=== PATIENT | male | born 1955 | race Caucasian/White ===

== ENCOUNTER 2018-12-24 21:41 | Observation (INO) ==
[2018-12-24] MEDS ORDERED: methylPREDNISolone 125 MG/2 ML VIAL IVP ONE (21:54)
--- NOTE | 2018-12-24 22:20 | Emergency Department Note ---
Disposition Clinical Impression: Angioedema Qualifiers: Encounter type: initial encounter Qualified Code(s): T78.3XXA - Angioneurotic edema, initial encounter Disposition: Still a Patient Condition: Fair Time of Disposition: 23:51 General Adult HPI - General Chief complaint: ED General Medical Stated complaint: Facial Angioedema Time Seen by Provider: 12/24/18 21:44 Source: patient Mode of arrival: ambulatory Limitations: no limitations Nursing Notes Reviewed: Yes Vital Signs Reviewed: Yes - History of Present Illness HPI Narrative: 63-year-old male presents to the emergency department complaining of facial swelling. He noticed approximately 30 minutes prior to arrival he noticed the right side of his lip started swelling. Patient does take lisinopril never this long before has not eaten anything out of the ordinary. He has not had noticed any rashes shortness of breath trouble swallowing or lump in his throat. Says been on lisinopril for approximately 2 years. There is no hereditary factor of this as he does not know anyone also has this problem. He has not noticed a fast heart rate. He does not believe he is allergic to anything that he has been in contact with recently. Patient otherwise has no other complaints. Pain Scale: 3 - Related Data Home Medications Medication Instructions Recorded Confirmed Aspirin 81 mg PO DAILY 07/24/16 12/25/18 Lisinopril [Zestril] 10 mg PO DAILY 07/24/16 12/25/18 Metformin HCl [Glucophage] 1,000 mg PO DAILY 07/24/16 12/25/18 Tamsulosin HCl [Flomax] 0.4 mg PO DAILY 12/25/18 12/25/18 Allergies Allergy/AdvReac Type Severity Reaction Status Date / Time lisinopril Allergy Swelling Verified 12/25/18 06:05 of Lip/Tongue/Throat [place] Allergy Anaphylaxis Verified 12/24/18 21:52 All systems ED: reviewed and negative except as stated. Review of Systems: As Per HPI Past Medical History - Past Medical History Attestation: Yes The following information was validated with the patient. Source: patient Medical history: Reports: diabetes, hypertension, other Psychiatric history: Reports: no psych history - Social History Smoking Status: Former smoker Smokeless Tobacco Status: No Alcohol use: Reports: none Drug use: Reports: none Physical Exam - General Limitations: no limitations General appearance: alert - Head Head exam: atraumatic, normocephalic, normal inspection - Eye Eye exam: Present: normal appearance, PERRL, EOMI - ENT ENT exam: normal exam, normal oropharynx, mucous membranes moist, other (Right cheek/right lower lip swollen there is no airway compromise no other swelling in the mouth. No tongue swelling no uvula swelling) - Neck Neck exam: Present: normal inspection, full ROM, trachea midline - Chest Chest inspection: Present: normal inspection, symmetric chest wall rise - Respiratory Respiratory exam: Present: normal lung sounds bilaterally. Absent: respiratory distress, wheezes - Cardiovascular Cardiovascular exam: Present: regular rate, normal rhythm, normal heart sounds - Abdominal Exam Abdominal exam: Present: soft, Non-Tender, normal bowel sounds. Absent: tenderness, distention, guarding, rebound, rigidity - Extremities Exam Extremities exam: Present: normal inspection, full ROM. Absent: tenderness, pedal edema - Back Exam Back exam: Present: normal inspection, full ROM. Absent: tenderness, CVA tenderness (R), CVA tenderness (L) - Neurological Exam Neurological exam: Present: alert, oriented X3 - Skin Skin exam: Present: warm, dry, intact, normal color. Absent: rash Course Course Narrative: There is no signs of respiratory distress this time no signs of airway compromise. Only sees relocated cheek. We will give patient Solu-Medrol as well as Benadryl. Patient has no symptoms at this time I believe this is probably angioedema secondary to lisinopril. No further lab or imaging is needed at this time. We will watch the patient and the emergency department be sure the swelling does not get worse or gets better if it does get worse we will consider admission. Disposition still pending observation Vital Signs Temperature 98.2 F 12/24/18 21:53 Pulse Rate 94 12/24/18 21:53 Respiratory Rate 16 12/24/18 21:53 Blood Pressure 193/134 12/24/18 21:53 O2 Sat by Pulse Oximetry 97 12/24/18 21:53 Temperature 98.2 F 12/24/18 21:53 Pulse Rate 90 12/24/18 23:28 Respiratory Rate 16 12/24/18 23:28 Blood Pressure 141/106 12/24/18 23:28 O2 Sat by Pulse Oximetry 96 12/24/18 23:28 Oxygen Delivery Oxygen Delivery Room Air Medical Decision Making - MDM Narrative Medical decision making narrative: Patient did receive Solu-Medrol as well as Benadryl IV here. We did continue to watch him for about an hour and a half his swelling did seem to get slightly worse but did not involve any more the face he never was in respiratory distress never involved the tongue never involved the throat never difficulty in swallowing. Due to this we feel the patient needs to be admitted. Dr. Toscano will speak with the hospitalists and hopefully he will be admitted to the hospitalist service. Please refer to his note for further plan and disposition. Patient stable at time of sign out - Medical Records Medical records reviewed: Yes I reviewed the patient's medical records. - Lab Data Result diagrams: 12/25/18 09:01 12/25/18 09:01 Attestation Statement - Attestation Attestation: Resident Attestation: I examined this patient and my medical decision making was reviewed with the Resident Physician. I agree with the documented findings, disposition and treatment plan as described except to the extent set forth below. We independently had [id number] contact with the patient. Patient presenting for evaluation of swelling to the lower lip cheek. Primary on the right side. Patient states that he does have a history of allergies area patient is also on lisinopril. Patient swelling is asymmetric. Patient swelling started approximately 30 minutes prior to arrival. Patient has had no involvement of the posterior oropharynx or tongue. No shortness of breath or chest pain or abdominal pain or rash. Patient is not hypotensive. Patient will be treated with Benadryl and steroids. Patient will continue to undergo observational in the emergency department. Given the concern for angioedema and lisinopril use, patient will require prolonged observation. After several hours of observation the patient's symptoms have not improved. Patient's symptoms have not worsened and still have no signs of anaphylaxis or airway compromise. Patient will be admitted to the hospital service for further observation.
[2018-12-25] MEDS ORDERED: Famotidine 20 MG/2 ML VIAL IVP ONE (01:19)
[2018-12-25 01:41] LABS: Basophils # 0.1 K/mcL (0.0-0.2); Eosinophils # 0.3 K/mcL (0.0-0.6); Eosinophils % 4.3 %; Hematocrit 44.9 % (37.5-50.1); Hemoglobin 15.1 g/dL (12.9-16.9); Lymphocytes # 3.4 K/mcL (0.6-4.6); Lymphocytes % 48.2 %; Mean Corpuscular HGB Conc 33.6 g/dL (31.6-35.5); Mean Corpuscular Hemoglobin 30.5 pg (28.0-33.3); Mean Corpuscular Volume 90.7 fL (83.0-100.0); Mean Platelet Volume 10.1 fL (9.4-12.4); Monocytes # 0.8 K/mcL (0.0-1.3); Monocytes % 11.5 %; Neutrophils # 2.5 K/mcL (1.6-8.9); Platelet Count 260 K/mcL (140-400); Red Blood Count 4.95 M/mcL (4.19-5.50); Red Cell Distribution Width 12.3 % (11.5-14.5)
[2018-12-25 01:49] LABS: BUN/Creatinine Ratio 10 (6-26); Blood Urea Nitrogen 10 mg/dL (8-23); Calcium 8.8 mg/dL (8.6-10.3); Carbon Dioxide 25 mEq/L (23-29); Chloride 102 mEq/L (98-107); Glucose 322 mg/dL (70-105); Osmolality,Calculated 287 (280-300); Potassium 3.9 mEq/L (3.5-5.1); Sodium 133 mEq/L (136-145); eGFR For Non-African Americans > 60 (> 60)
[2018-12-25] MEDS ORDERED: *HR* Dextrose 50 % in Water (Syg) 50 ML SYRINGE IVP PRN (03:18)
[2018-12-25] MEDS ORDERED: D5% in Water 1,000 ML IVC PRN (03:18)
[2018-12-25] MEDS ORDERED: Dextrose Gel 15 GM/37.5 ML TUBE PO PRN ×2 (03:18)
[2018-12-25] MEDS ORDERED: Ondansetron 4 MG/2 ML VIAL IVP PRN (03:45)
[2018-12-25] MEDS ORDERED: Acetaminophen 325 MG TABLET PO PRN (03:45)
[2018-12-25] MEDS ORDERED: 0.9 % Sodium Chloride w KCl 20 MEQ/1,000 ML MLS IVC SCH (03:45)
[2018-12-25] MEDS ORDERED: Naloxone 0.4 MG/ML INJ IVP PRN (03:45)
--- NOTE | 2018-12-25 04:30 | Internal Med History&Physical ---
Date of Encounter: 12/25/18 Time of Encounter: 02:00 Internal Medicine - H&P: HPI Chief complaint: lip and face swelling Admitted From: Emergency Dept Plans for Post Hospital Care: Home History of present illness: Mr. Pierson is a 63 year old male who presents to the ER tonight with acute onset of swelling of his lower lip and right side of his face/cheek. This reaction was unprovoked by any medication, foods, allergen exposure, or any trauma to his left face. Because of sudden onset and degree of swelling, he cam e to ER for evaluation. In the ER, he was noted to have evidence of angioedema based on clinical exam. He was given a dose of Benadryl and Solumedrol without any significant relief. After several hours of observation, he was admitted to hospitalist service for further workup, treatment, and monitoring. Upon my assessment of the patient, he confirms the above history. He does not exhibit any shortness of breath, respiratory distress, stridor, or any hemodynamic instability. His lower lip is swollen, primarily the right side of his lower lip. Additionally, his right cheek and soft tissues are swollen as well. He denies any new/exotic foods, new medications, potential allergen exposure, fevers, chills, or night sweats. Upon review of his medications, he has been on lisinopril for over 3-4 years now. He has had no untoward effects from lisinopril in the past. Family history is negative for any history of angioedema. He denies any difficulty breathing, swallowing, lightheadedness, or dizziness. Past Med Surg Social Fam HX - Past Medical History Attestation: Yes The following information was validated with the patient. Source: patient, old records reviewed Medical history: diabetes, hypertension, other Additional medical history: BPH Psychiatric history: no psych history - Past Surgical History Surgical History: no surgical history - Social History Smoking Status: Former smoker Smokeless Tobacco Status: No Alcohol use: none Drug use: none Current living situation: With Family Activity Level: Independent ambulation Recent Out of Country Travel Within the Last 8 Weeks: No - Family History Mother Living Status: Hx Family Cardiac Disorders: Yes Hx Family Respiratory Disorders: Yes Hx Family Cancer: No Hx Family Endocrine Disorder: Yes Father Living Status: Hx Family Cardiac Disorders: Yes Internal Medicine - H&P: Meds Aspirin 81 mg PO DAILY 07/24/16 [History] Lisinopril [Zestril] 10 mg PO DAILY 07/24/16 [History] Metformin HCl [Glucophage] 1,000 mg PO DAILY 07/24/16 [History] Tamsulosin HCl [Flomax] 0.4 mg PO DAILY 12/25/18 [History] Allergy/AdvReac Type Severity Reaction Status Date / Time [place] Allergy Anaphylaxis Verified 12/24/18 21:52 - Constitutional Constitutional: no chills, no fever(s), no night sweats - EENT Eyes: no blurry vision, no change in vision Ears: no ear pain, no tinnitus Nose, mouth and throat: lip swelling, no nasal congestion, no sinus pressure, no sore throat, no throat swelling, no tongue swelling - Cardiovascular Cardiovascular ROS IM: no chest pain, no dyspnea, no dyspnea on exertion, no lightheadedness, no orthopnea, no paroxysmal nocturnal dyspnea, no syncope - Respiratory Respiratory: no cough, no dyspnea, no hemoptysis, no chest congestion, no excessive phlegm production, no change in phlegm color - Gastrointestinal Gastrointestinal: no abdominal pain, no diarrhea, no hematemesis, no hematochezia, no melena, no nausea, no vomiting - Genitourinary Genitourinary ROS male: no dysuria, no flank pain, no hematuria - Musculoskeletal Musculoskeletal ROS IM: no arthralgias, no back pain - Integumentary Integumentary IM: no rash, no skin ulcer, no jaundice - Neurological Neurological ROS: no disequilibrium, no dizziness, no focal weakness, no frequent falls, no headache(s) - Psychiatric Psychiatric: no anxiety, no depression - Endocrine Endocrine IM: no cold intolerance, no heat intolerance, no polydipsia, no polyuria - Hematologic/Lymphatic Hematologic/Lymphatic: no easy bruising - Allergic/Immunologic Allergic/Immunologic: uticaria, lip swelling, no tongue swelling, no throat swelling, no wheezing, no GI upset with certain foods - Constitutional Vitals: Temp Pulse Resp BP Pulse Ox 98.3 F 90 16 144/104 92 12/25/18 03:07 12/25/18 03:07 12/25/18 03:07 12/25/18 03:07 12/25/18 03:07 General appearance: Present: cooperative, A&O X 3, pleasant, no acute distress, answers questions appropriately Exam: see below - Head Head exam: Present: atraumatic - Eye Eye exam: Present: EOMI, normal appearance, PERRL. Absent: scleral icterus Pupils: Present: normal accommodation - ENT ENT exam: Present: mucous membranes dry. Absent: normal exam Additional comments: right and lower lip swollen with mild swelling of left lower lip right cheek/soft tissue swelling no tongue or uvula swelling; airway patent with no sign of obstruction or compromise noted no stridor on auscultation - Neck Neck exam general surgery: Present: full ROM, supple, trachea midline. Absent: lymphadenopathy, tenderness, nuchal rigidity, thyromegaly - Respiratory Respiratory exam: Present: CTAB, wheezes. Absent: accessory muscle use, prolonged expiratory phase, rales, respiratory distress, rhonchi, stridor - Cardiovascular Cardiovascular exam: Present: RRR, +S1, +S2. Absent: diastolic murmur, systolic murmur - GI/Abdominal GI/Abdominal exam: Present: normal bowel sounds, soft. Absent: guarding, hepatomegaly, mass, rebound, splenomegaly, tenderness - Extremities Exam Extremities exam: Present: normal capillary refill, warm, radial pulses palpable and symmetrical. Absent: calf tenderness, full ROM, pedal edema - Back Exam Back exam: Present: normal inspection. Absent: CVA tenderness (L), CVA tenderness (R) - Neurological Exam Neurological exam: Present: alert, oriented X3, no focal deficits, strengths equal and symetr throughout - Psychiatric Psychiatric exam: Present: normal affect, normal mood - Skin Skin exam: Present: dry, intact, warm Internal Med - H&P Results - Labs CBC & Chem 7: 12/24/18 21:55 12/24/18 21:55 Labs: Short CBC 12/24/18 Range/Units 21:55 WBC 7.1 (4.3-11.1) K/mcL Hgb 15.1 (12.9-16.9) g/dL Hct 44.9 (37.5-50.1) % Plt Count 260 (140-400) K/mcL Neutrophils # 2.5 (1.6-8.9) K/mcL BMP 12/24/18 21:55 Sodium 133 L Potassium 3.9 Chloride 102 Carbon Dioxide 25 BUN 10 Creatinine 0.98 Glucose 322 H Calcium 8.8 - Assessment and Plan (1) Angioedema Current Visit: Yes Status: Acute Assessment and plan: 1. Will treat with Solumedrol, Benadryl, and Ppepcid. 2. Monitor on 2N closely and on telemetry and pulse oximetry. 3. Stop Lisinopril. 4. Patient will likely need consultation with Allergy/Immunology in the near future. Qualifiers: Encounter type: initial encounter Qualified Code(s): T78.3XXA - Angioneurotic edema, initial encounter (2) Diabetes Current Visit: Yes Status: Chronic Assessment and plan: 1. Hold oral meds. 2. Will order SSI and monitor glucose closely. Qualifiers: Diabetes mellitus type: type 2 Diabetes mellitus chcf insulin use: without salvage determiner use Diabetes mellitus complication status: without complication Qualified Code(s): E11.9 - Type 2 diabetes mellitus without complications (3) Hypertension Current Visit: Yes Status: Chronic Assessment and plan: 1. Hold Lisinopril. 2. Monitor BP and order PRN meds for now if BP remains high. Qualifiers: Hypertension type: essential hypertension Qualified Code(s): I10 - Essential (primary) hypertension (4) DVT prophylaxis Current Visit: Yes Status: Acute Assessment and plan: 1. Heparin SQ.
[2018-12-25] MEDS: *HR* Heparin 5,000 UNIT/ML VIAL SQ SCH ×2 (05:57→17:20)
[2018-12-25] MEDS: Famotidine 20 MG/2 ML VIAL IVP SCH ×2 (05:57→17:21)
[2018-12-25] MEDS: methylPREDNISolone 125 MG/2 ML VIAL IVP SCH ×2 (07:54→17:21)
[2018-12-25] MEDS: Insulin LISPRO 300 UNITS/3 ML VIAL SQ SCH ×3 (07:54→17:20)
[2018-12-25] MEDS: Aspirin 81 MG TAB.CHEW PO SCH (07:55)
--- NOTE | 2018-12-25 09:41 | Electrocardiograph Report ---
[address] [address] Test Date: 2018-12-25 Pat Name: Salvador Pierson Department: 110 Room: 2N05 Gender: M Housekeeping Cleaner: GONZALEZ : 1955 Requested By: Kulwinder Huang Order Number: [id number] Reading MD: Daniel Cobian Measurements Intervals [place] Rate: 83 P: 38 AR: 168 QRS: 88 QRSD: 100 T: -3 QT: 388 QTc: 427 Interpretive Statements SINUS RHYTHM NONSPECIFIC T-WAVE ABNORMALITY Electronically Signed On 12-25-2018 9:39:51 EDT by Daniel Cobian
[2018-12-25 10:08] LABS: Basophils % 0.2 %; Hematocrit 43.8 % (37.5-50.1); Hemoglobin 14.7 g/dL (12.9-16.9); Immature Granulocytes % 0.2 % (0-4); Lymphocytes # 1.1 K/mcL (0.6-4.6); Lymphocytes % 10.7 %; Mean Corpuscular HGB Conc 33.6 g/dL (31.6-35.5); Mean Corpuscular Hemoglobin 30.5 pg (28.0-33.3); Mean Corpuscular Volume 90.9 fL (83.0-100.0); Mean Platelet Volume 10.1 fL (9.4-12.4); Monocytes # 0.2 K/mcL (0.0-1.3); Monocytes % 2.3 %; Neutrophils # 8.6 K/mcL (1.6-8.9); Platelet Count 249 K/mcL (140-400); Red Blood Count 4.82 M/mcL (4.19-5.50); Red Cell Distribution Width 12.4 % (11.5-14.5); Segmented Neutrophils % 86.6 %
[2018-12-25 10:15] LABS: INR 1.2
[2018-12-25 10:18] LABS: Activated Partial Thrombo Time 29.7 Seconds (26.0-36.0)
[2018-12-25 10:25] LABS: Alanine Aminotransferase 15 Units/L (7-52); Albumin 3.9 g/dL (3.5-5.7); Albumin/Globulin Ratio 1.2 (1.1-2.2); Alkaline Phosphatase 64 Units/L (34-104); BUN/Creatinine Ratio 16 (6-26); Bilirubin,Total 0.9 mg/dL (0.3-1.0); Blood Urea Nitrogen 15 mg/dL (8-23); Calcium 9.1 mg/dL (8.6-10.3); Carbon Dioxide 21 mEq/L (23-29); Chloride 101 mEq/L (98-107); Globulin 3.3 g/dL (2.4-3.5); Glucose 383 mg/dL (70-105); Magnesium 1.9 mg/dL (1.6-2.6); Osmolality,Calculated 297 (280-300); Potassium 4.3 mEq/L (3.5-5.1); Sodium 135 mEq/L (136-145); Total Protein 7.2 g/dL (6.4-8.9); eGFR For Non-African Americans > 60 (> 60)
--- NOTE | 2018-12-25 10:39 | Event Note ---
Date of Encounter: 12/25/18 Time of Encounter: 10:37 I have seen and evaluated the patient at bedside. H&H reviewed. patient report the edema of his face is improving. denies difficulty swallowing, and reports his voice is trending back to his baseline. discontinue IV fluids advance diet as tolerated will continue IV steroids for at least 12 more hours started on amlodipine for BP control. will continue to monitor.
[2018-12-25 11:10] LABS: Aspartate Amino Transferase 14 Units/L (13-39)
[2018-12-25] MEDS: amLODIPine 5 MG TABLET PO SCH (12:17)
[2018-12-25] MEDS ORDERED: Insulin LISPRO 300 UNITS/3 ML VIAL SQ SCH (21:00)
[2018-12-25] MEDS: Insulin DETEMIR 100 UNIT/ML X5UNITS SQ SCH (22:00)
[2018-12-26] MEDS: methylPREDNISolone 125 MG/2 ML VIAL IVP SCH ×2 (00:06→08:04)
[2018-12-26] MEDS: Famotidine 20 MG/2 ML VIAL IVP SCH (05:28)
[2018-12-26] MEDS: *HR* Heparin 5,000 UNIT/ML VIAL SQ SCH ×2 (05:29→05:36)
[2018-12-26 07:30] VITALS: BP 148/94
[2018-12-26] MEDS: Aspirin 81 MG TAB.CHEW PO SCH (08:04)
[2018-12-26] MEDS: Insulin LISPRO 300 UNITS/3 ML VIAL SQ SCH (08:04)
[2018-12-26] MEDS: amLODIPine 5 MG TABLET PO SCH (08:04)
[2018-12-26] MEDS: Insulin DETEMIR 100 UNIT/ML X5UNITS SQ SCH (08:05)
--- NOTE | 2018-12-26 08:28 | Discharge Summary ---
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 Pierson is a 63 year old male PMH of DM, HTN. who presents to the ER tonight with acute onset of swelling of his lower lip and right side of his face/cheek. Patient reported taking 20mg of lisinopril before developing the swelling of his face. Patient was admitted to the hospital due to angioedema. Patient was managed with IV steroids, and benadryl. Patient did not have any airways compromise during this admission. Patient acute symptoms resolved and at discharge the swelling had almost completely resolved. His voices back to normal and tolerating oral/regular diet. Patient is being discharged on a medrol-dose pack. recommended to discontinue lisinopril. started on amlodipine. Recommended to follow up with his PCP within a week of hospital discharge for possible antihypertensive medication adjustment if needed. - Time Spent with Patient Total time spent providing and/or coordinating discharge services: Time spent: Greater than 30 minutes (35) - Discharge Medications Prescriptions: New amLODIPine [Norvasc] 5 mg PO DAILY 30 Days #30 tablet Continued Aspirin 81 mg PO DAILY Metformin HCl [Glucophage] 1,000 mg PO DAILY Tamsulosin HCl [Flomax] 0.4 mg PO DAILY Discontinued Lisinopril [Zestril] 10 mg PO DAILY Home Medications: Aspirin 81 mg PO DAILY 07/24/16 [History] Metformin HCl [Glucophage] 1,000 mg PO DAILY 07/24/16 [History] Tamsulosin HCl [Flomax] 0.4 mg PO DAILY 12/25/18 [History] amLODIPine [Norvasc] 5 mg PO DAILY 30 Days #30 tablet 12/26/18 [Rx] Allergies/Adverse Reactions: Allergy/AdvReac Type Severity Reaction Status Date / Time lisinopril Allergy Swelling Verified 12/25/18 06:05 of Lip/Tongue/Throat [place] Allergy Anaphylaxis Verified 12/24/18 21:52 Date of admission: 12/25/18 01:33 Primary care physician: PCP NONE - Constitutional Vitals: Temp Pulse Resp BP Pulse Ox 97.8 F 90 17 148/94 93 12/26/18 07:27 12/26/18 07:27 12/26/18 07:27 12/26/18 07:27 12/26/18 07:27 General appearance: Present: cooperative, A&O X 3, pleasant, no acute distress, answers questions appropriately Exam: Vitals: Reviewed General: Alert and oriented x4. In no distress HEENT: EOM, pupils equal, round and reactive. minimal edema of the right side of his lower check Cardiovascular: RRR, normal S1 & S2, no rubs, murmurs or gallops. Lungs: CTA b/l, no wheezes or crackles. Abdomen: Obese, soft, non-tender, no rigidity. Extremities: No deformity, no edema or tenderness, no joint swelling or clubbing. Neurological: Normal cognition and motor skills. Rest of the physical exam is non contributory - Patient Status Disposition: Home, Self-Care Condition: Good Functional capacity at discharge: independent ambulation Overall status at discharge: patient is back to baseline - Discharge Instructions Follow Up With: Adrian Wilcox DO [Resident] - 01/02/19 1:30 pm - Diet and Activity Activity: resume usual activities as tolerated Diet: diabetic diet
== END 2018-12-26 11:14 | disposition home or self-care (01) ==
LOC: EMEROOARM 21:41 → 2NNU 21:41 → SUATTDRO 12-25 01:33 → 2NNU 12-25 02:15
PROVIDERS: ADMIT Pediatrics; ATTEND Internal Medicine

== ENCOUNTER 2020-11-25 09:36 | Observation (INO) ==
[2020-11-25 10:22] LABS: Basophils # 0.1 K/mcL (0.0-0.2); Eosinophils # 0.4 K/mcL (0.0-0.6); Eosinophils % 5.6 %; Hematocrit 46.8 % (37.5-50.1); Hemoglobin 15.5 g/dL (12.9-16.9); Immature Granulocytes % 0.2 % (0-4); Lymphocytes # 2.7 K/mcL (0.6-4.6); Lymphocytes % 42.8 %; Mean Corpuscular HGB Conc 33.1 g/dL (31.6-35.5); Mean Corpuscular Hemoglobin 30.7 pg (28.0-33.3); Mean Corpuscular Volume 92.7 fL (83.0-100.0); Mean Platelet Volume 9.4 fL (9.4-12.4); Monocytes # 0.7 K/mcL (0.0-1.3); Monocytes % 10.6 %; Neutrophils # 2.5 K/mcL (1.6-8.9); Platelet Count 272 K/mcL (140-400); Red Blood Count 5.05 M/mcL (4.19-5.50); Red Cell Distribution Width 12.2 % (11.5-14.5); Segmented Neutrophils % 39.8 %; White Blood Count 6.2 K/mcL (4.3-11.1)
[2020-11-25 10:43] LABS: BUN/Creatinine Ratio 16 (6-26); Blood Urea Nitrogen 19 mg/dL (8-23); Calcium 9.4 mg/dL (8.6-10.3); Carbon Dioxide 30 mEq/L (23-29); Chloride 97 mEq/L (98-107); Glucose 214 mg/dL (70-105); Osmolality,Calculated 289 (280-300); Potassium 3.5 mEq/L (3.5-5.1); Sodium 135 mEq/L (136-145); eGFR For African Americans > 60 (> 60); eGFR For Non-African Americans > 60 (> 60)
[2020-11-25] MEDS ORDERED: Aspirin 325 MG TABLET PO ONE (10:48)
[2020-11-25] MEDS ORDERED: Ondansetron ODT 4 MG TAB.RAPDIS SL PRN (12:18)
[2020-11-25] MEDS ORDERED: Melatonin 3 MG TABLET PO PRN (12:18)
[2020-11-25] MEDS ORDERED: Naloxone 0.4 MG/ML INJ IVP PRN (12:18)
[2020-11-25] MEDS ORDERED: MOM Conc 10 ML UD.LIQ PO PRN (12:18)
[2020-11-25] MEDS ORDERED: Mag Hydrox/Al Hydrox/Simeth 30 ML UDC PO PRN (12:18)
[2020-11-25] MEDS ORDERED: Isovue-370 500 ML BOTTLE IVP ONE (12:18)
[2020-11-25] MEDS ORDERED: Dextrose Gel 15 GM/37.5 ML TUBE PO PRN ×2 (12:28)
[2020-11-25] MEDS ORDERED: *HR* Dextrose 50 % in Water (Vial) 50 ML VIAL IVP PRN (12:28)
[2020-11-25] MEDS ORDERED: D5% in Water 1,000 ML IVC PRN (12:28)
[2020-11-25] MEDS ORDERED: Perflutren Lipid Microsphere 1.3 ML in 0.9 % Sodium Chloride 8.7 ML IVP PRN (12:32)
[2020-11-25 12:36] LABS: Bilirubin,Urine Negative (Negative); Blood,Urine Negative (Negative); Clarity,Urine Clear (Clear); Color,Urine Light-Yellow (Yellow); Glucose,Urine (UA) Normal (Normal); Ketones,Urine Negative (Negative); Leukocyte Esterase,Urine Negative (Negative); Nitrite,Urine Negative (Negative); PH,Urine 5.5 pH Units (5.0-8.0); Protein,Urine Trace mg/dL (Neg-Trace); Specific Gravity,Urine 1.023 (1.010-1.025); Urobilinogen,Urine Normal (Normal)
[2020-11-25 14:34] LABS: Thyroid Stimulating Hormone 2.408 mcIU/mL (0.340-5.600)
[2020-11-25 15:01] LABS: Estimated Average Glucose 206 mg/dl; Hemoglobin A1C 8.8 %
[2020-11-25] MEDS: Insulin LISPRO 300 UNITS/3 ML VIAL SUBQ SCH (16:51)
[2020-11-25] MEDS ORDERED: Insulin LISPRO 300 UNITS/3 ML VIAL SUBQ SCH (21:00)
[2020-11-26 03:31] LABS: Hematocrit 43.7 % (37.5-50.1); Hemoglobin 14.6 g/dL (12.9-16.9); Mean Corpuscular HGB Conc 33.4 g/dL (31.6-35.5); Mean Corpuscular Volume 92.8 fL (83.0-100.0); Mean Platelet Volume 9.5 fL (9.4-12.4); Platelet Count 238 K/mcL (140-400); Red Blood Count 4.71 M/mcL (4.19-5.50); Red Cell Distribution Width 12.3 % (11.5-14.5); White Blood Count 6.4 K/mcL (4.3-11.1)
[2020-11-26 03:39] LABS: INR 1.4; Prothrombin Time 15.6 Seconds (9.4-12.1)
[2020-11-26 03:51] LABS: Alanine Aminotransferase 12 Units/L (7-52); Albumin 3.8 g/dL (3.5-5.7); Albumin/Globulin Ratio 1.2 (1.1-2.2); Alkaline Phosphatase 49 Units/L (34-104); Aspartate Amino Transferase 14 Units/L (13-39); BUN/Creatinine Ratio 16 (6-26); Bilirubin,Total 0.8 mg/dL (0.3-1.0); Blood Urea Nitrogen 17 mg/dL (8-23); Carbon Dioxide 30 mEq/L (23-29); Chloride 98 mEq/L (98-107); Chol/HDL Ratio 3.9 (0-4.9); Cholesterol 143 mg/dL (< 200); Globulin 3.2 g/dL (2.4-3.5); Glucose 163 mg/dL (70-105); HDL Cholesterol 37 mg/dL (40-59); LDL Cholesterol,Calculated 85 mg/dL (< 100); Osmolality,Calculated 287 (280-300); Potassium 3.5 mEq/L (3.5-5.1); Sodium 136 mEq/L (136-145); Triglycerides 106 mg/dL (< 150); eGFR For African Americans > 60 (> 60); eGFR For Non-African Americans > 60 (> 60)
[2020-11-26 04:38] LABS: Estimated Average Glucose 209 mg/dl; Hemoglobin A1C 8.9 %
[2020-11-26] MEDS: Insulin LISPRO 300 UNITS/3 ML VIAL SUBQ SCH ×2 (08:21→12:11)
[2020-11-26] MEDS ORDERED: Aspirin Enteric Coated 81 MG Tablet PO SCH (09:00)
[2020-11-26 13:07] VITALS: BP 126/83
== END 2020-11-26 13:54 | disposition home or self-care (01) ==
LOC: 3BNU 09:36 → EMEROOARM 09:36 → 3BNU 13:49 → UNDODISOB 11-26 11:21
PROVIDERS: ADMIT Internal Medicine; ATTEND Internal Medicine